=== PATIENT | male | born 1955 | race Native Hawaiian/Other Pacific Islander ===

== ENCOUNTER 2019-04-05 12:19 | Day surgery (SDC) | payer OTHER, SELFPAY ==
--- NOTE | 2019-04-05 | PATH_ITS ---
[facility] Accession Number: [id number] . 01 Material submitted: . body - POLYP AT 130 . 02 Diagnosis: Polyp at 130 cm: Benign submucosal lipoma (1.6 cm) of the colorectum. MRV 04/09/2019 1134 Local . 02 Electronically signed: . Angelica Woodward MD, Pathologist NPI- [id number] . 01 Gross description: . POLYP AT 130: Received in formalin is 1 fragment(s) of singh, soft tissue measuring 1.5 x 1.3 x 0.5 cm which is inked, serially sectioned and submitted entirely in 2 cassette(s) /QBJ 04/06/2019 0014 Local . 02 Pathologist provided ICD-10: K63.5 . 02 CPT . 963556 Performed at: 01 [facility] [address] [id number] MD Clayton Holbrook MD Phone: [phone] Performed at: 02 [facility] [address] [place], [place] [id number] MD Melodie Lopez MD Phone: [phone]
[2019-04-05 12:37] VITALS: BP 179/95; PULSE 92; RESP 15; TEMP 36.6; O2SAT 94; BMI 32.8
[2019-04-05] MEDS: SODIUM CHLORIDE 0.9% 1,000 ML 200 ML IV (12:50)
[2019-04-05] MEDS: fentaNYL 250 MCG/5 ML INJ IV (13:38)
[2019-04-05] MEDS: MIDAZOLAM 5 MG/5 ML VIAL IV (13:39)
--- NOTE | 2019-04-05 13:41 | PM.HP.1 ---
History of Present Illness History of Present Illness Date Patient Seen: 04/05/19 Time Patient Seen: 13:41 Chief complaint: [id number] SCREENING COLONOSCOPY Narrative: Patient presents for colorectal screening. He had previous colonoscopy 5 years ago that demonstrated adenomatous polyps which were resected.. No personal or family history of colon cancer. On further history denies any recent gastrointestinal symptoms. No nausea, vomiting, abdominal pain, loss of appetite, unexplained weight loss, change in bowel habits, diarrhea, constipation, melena, hematochezia, or bright red blood per rectum. Patient History Medical History Adenomatous polyps (Acute) Diabetes (Acute) Myocardial infarction (Acute) Family & Social History Social History: household members none Meds Home Medications and Allergies Home Medications Medication Instructions Recorded Confirmed Type aspirin [Aspir-81] 81 mg PO DAILY 04/05/19 04/05/19 History atorvastatin [Lipitor] 80 mg PO DAILY 04/05/19 04/05/19 History candesartan 4 mg PO DAILY 04/05/19 04/05/19 History carvedilol 6.25 mg PO BID 04/05/19 04/05/19 History dulaglutide [Trulicity] 1.5 mg SUBCUT QWEEK 04/05/19 04/05/19 History insulin glargine [Lantus U-100 25 unit SUBCUT BID 04/05/19 04/05/19 History Insulin] metformin 1,000 mg PO BID 04/05/19 04/05/19 History Allergies Allergy/AdvReac Type Severity Reaction Status Date / Time No Known Allergies Allergy Uncoded 04/05/19 12:29 Review of Systems Review of Systems Narrative: A 10 point review of systems is negative except as noted in the HPI Exam Vital Signs (past 8 hours): - 04/05/19 12:37 Temperature 97.8 F Pulse Rate 92 H Respiratory Rate 15 Blood Pressure 179/95 H Pulse Oximetry 94 Oxygen Delivery Method Room Air Narrative Exam Narrative: General-no acute distress, well nourished HEENT-moist mucous membranes, no scleral icterus Neck-supple, no lymphadenopathy Chest- non labored respirations, clear to auscultation bilaterally Cardiac-regular rate no peripheral edema Abdomen-soft, nontender, non distended Extremities-warm, well perfused Neurological-alert and oriented, no focal deficits Assessment & Plan Assessment and plan (1) Screening for colon cancer: Current visit: Yes Status: Acute Assessment & Plan narrative: The patient requires colorectal screening and colonoscopy is recommended. Technical details were discussed. Risks, benefits, alternatives explained. Risks including but not limited to myocardial infarction, aspiration, bleeding, pain, missed lesion, incomplete examination, need for further radiographic studies, colonic perforation, and need for major abdominal surgery were discussed. All questions were answered to their satisfaction, and they are in agreement with this plan.
--- NOTE | 2019-04-05 14:15 | PM.OP.ENDO ---
Operative Date/Time/Diagnoses Date of procedure: 04/05/19 Time of procedure: 14:15 Pre-op diagnosis: screening colonoscopy Post-op diagnosis: same Procedure & Clinicians Study performed: Colonoscopy Same procedure as scheduled: Yes Indications: 63-year-old male prior colonoscopy 5 years ago demonstrated an adenomatous polyp presents for routine screening. Surgeon: Klaus Pearson Procedure Notes SCOAP/Timeout: Performed Procedure in detail: Patient placed in left lateral decubitus position. Time out was performed. Procedural sedation was administered with Versed and Fentanyl. A rectal exam demonstrated no external hemorrhoids no internal masses. Colonoscopy scope was placed into the rectum and advanced through the colon to the cecum. The ileocecal valve was identified. The scope was then slowly withdrawn examining colon thoroughly in all directions. The colonoscopy was notable for the following 1. 2 cm adenomatous appearing polyp in the right colon resected with hot snare. Hemostatic 2. Sigmoid diverticulosis 3. Scope withdrawal time: 6 Sedation minutes: 30 Findings: diverticulosis Specimen(s): other (Polyp) Complications: none Impression: Polyp Post-procedure Recommendations: Colonscopy in 5 years Disposition: same day surgery
[2019-04-05 14:21] VITALS: BP 162/84; PULSE 77; RESP 14; TEMP 36.5; O2SAT 96
--- NOTE | 2019-04-05 14:23 | SUR.PHASEII ---
pt awake and alert. bowel sounds active. No distress noted. No complaints voice.
[2019-04-05 14:28] VITALS: BP 154/95; PULSE 86; RESP 16; O2SAT 96
[2019-04-05 14:35] VITALS: BP 153/87; PULSE 83; RESP 16; O2SAT 95
== END 2019-04-05 14:44 | disposition home or self-care (01) ==
PROVIDERS: PCP Internal Medicine; Visit Provider Surgery
PROC: 0DJD8ZZ Inspection of Lower Intestinal Tract, Via Natural or Artificial Opening Endoscopic (ICD-10-PCS; CPT 45378; principal; 2019-04-05 13:45)
DX: Z12.11 Encounter for screening for malignant neoplasm of colon (principal); Z86.010 Personal history of colon polyps; Z79.4 Long term (current) use of insulin; E11.9 Type 2 diabetes mellitus without complications; I25.2 Old myocardial infarction; K63.5 Polyp of colon; K57.30 Diverticulosis of large intestine without perforation or abscess without bleeding
CPT/HCPCS: 45385; 99152; 99153; J2250; J3010

== ENCOUNTER → 2022-08-27 09:05 | Outpatient (CLI) | payer MEDICARE, OTHER, SELFPAY ==
--- NOTE | 2022-08-27 | DI.NM.S_ITS ---
PROCEDURE: NM CARMEN PERF SPECT REST & STR Rest and exercise myocardial perfusion SPECT with gated imaging and ejection fraction RADIOPHARMACEUTICAL: 12.4 mCi Tc-99m sestamibi IV at rest and 25.5 mCi Tc-99m sestamibi IV at peak exercise. A [id number]-[id number] was performed. INDICATIONS: Atherosclerotic heart disease of [place] coronary TECHNIQUE: Radiopharmaceutical was injected at peak stress test, and also at rest. SPECT images were obtained. SPECT myocardial perfusion images were displayed in short axis, horizontal long axis, and vertical long axis views. Gated images were reviewed using Spyra software. COMPARISON: None. CARDIAC STRESS: A standard Philip treadmill exercise tolerance test was performed by the patient under the supervision of an attending staff. The patient exercised for 6 minutes and 22 seconds; 7.0 METS; functional aerobic impairment (LUIS) is +10%. Hemodynamic data: There is normal heart rate response to exercise stress. Patient achieved 94% of maximum predicted heart rate at peak exercise. Hypertensive response to exercise. Maximum blood pressure 230/102. Symptoms: Patient denied chest pain during exercise. EKG: No diagnostic EKG changes of ischemia; occasional PVCs with exercise. FINDINGS: Raw data: There is good myocardial labeling by radiotracer. No significant motion artifacts. Wguz-ra-nxbpe ratio is 0.38 (normal is less than 0.38 for sestamibi tracer, and less than 0.50 for thallium tracer). Left ventricle function: Gated images demonstrate normal left ventricle wall thickening. No segmental wall motion abnormality. No transient ischemic dilation; TID is 0.73 (normal less than 1.3). The left ventricle resting end-diastolic volume is 81 mL. Left ventricle stress ejection fraction is >75%; normal values are above 45%. Myocardial perfusion: There is normal distribution of activity in the left and right ventricular myocardium. No fixed or reversible perfusion defects. IMPRESSION: Low risk study. No evidence of exercise-induced ischemia on ECG or SPECT imaging. Normal LV size with hyperdynamic function. Hypertensive response to exercise. Slightly reduced exercise capacity. Dictated by: Cassie Lima D.O. on 08/30/2022 at 17:11 Approved by: Cassie Lima D.O. on 08/30/2022 at 17:20
--- NOTE | 2022-08-27 | DI.ECHO.S_ITS ---
[facility] +---------+ : : [address] : : : : [id number] : : : : Phone: [phone] Echocardiogram Report + + :Name: BRET TEMPLETON Study Date: 08/27/2022 Height: 68 in : :[facility] ReadingLocation: Weight: 220 lb : : Gender: Male BSA: 2.1 m2 : :: 1955 Age: 67 yrs BP: 150/80 mmHg: :Reason For Study: Atherosclerotic Heart Disease of [place] : :Coronary : :Ordering Physician: Cristino, : :[place] Performed By: Kesha Martel : :Referring: KINGA GREGG : + + Interpretation Summary 1) Mildly increased left ventricular thickness (concentric) with normal, size, normal wall motion, and normal systolic function (EF 60-65%). 2) Normal right ventricular size and function. 3) No significant valvular abnormalities. 4) No prior Echo available for comparison. Procedure: A two-dimensional transthoracic echocardiogram with color flow and Doppler was performed. The study quality was technically difficult. A contrast injection of Definity was performed to improve assessment of LV function. There is no prior echocardiogram noted for this patient. The patient was in normal sinus rhythm during the exam. Left Ventricle: The left ventricle is normal in size. Left ventricular wall thickness is mildly increased. The ejection fraction is estimated to be 60- 65%. Diastolic parameters suggest a relaxation abnormality of the left ventricle, consistent with probable normal filling pressures. Right Ventricle: The right ventricle is normal in size and function. Atria: The left atrial size is normal. Right atrial size is normal. There is no Doppler evidence for an interatrial shunt. Mitral Valve: The mitral valve is normal. There is no mitral valve stenosis. There is no mitral regurgitation noted. Aortic Valve: The aortic valve is trileaflet. The aortic valve opens well. There is no aortic valve stenosis. No aortic regurgitation is present. Tricuspid Valve: The tricuspid valve is normal. There is no tricuspid stenosis. There is trace tricuspid regurgitation. The right ventricular systolic pressure is estimated to be at least 15 mmHg based on an estimated right atrial pressure of 3 mm Hg. Pulmonic Valve: The pulmonic valve leaflets are thin and pliable; valve motion is normal. There is no pulmonic valvular stenosis. There is no pulmonic valvular regurgitation. Great Vessels: The aortic root is normal size. The ascending aorta is normal in size. The pulmonary artery is normal size. The IVC is of normal diameter and collapses greater than 50% with a sniff. This suggests a low right atrial pressure of 3 mm Hg. Pericardium/ Pleura There is no pericardial effusion. There is no pleural effusion. MMode/2D Measurements & Calculations LVIDd: 4.1 cm LVOT diam: 1.8 cm LVIDs: 2.3 cm Ao root diam: 2.9 cm FS: 43.9 % asc Aorta Diam: 2.8 cm IVSd: 1.1 cm LVPWd: 1.3 cm LV hall. diameter/BSA (cm/m^2): 1.9 LV sys. diameter/BSA (cm/m^2): 1.1 LA A2 area: 17.6 cm2 RA long axis: 4.7 cm LA A4 area: 13.8 cm2 RA area: 13.6 cm2 LA length (vol): 6.1 cm RA vol: 33.5 ml LA vol: 33.9 ml RA : 15.7 ml/m2 LA vol index: 15.9 ml/m2 RVD1 (basal): 4.0 cm LVLs ap4: 5.9 cm LVLd ap2: 6.4 cm TAPSE_phl: 1.9 cm LVLs ap2: 5.1 cm Doppler Measurements & Calculations Ao V2 max: 86.3 cm/sec LVOT Max Willy: 80.1 cm/sec Ao V2 mean: 65.3 cm/sec LV V1 max P.6 mmHg Ao max P.0 mmHg LV V1 VTI: 18.8 cm Ao mean P.0 mmHg SARMAD(I,D): 2.3 cm2 Ao V2 VTI: 20.5 cm SARMAD(V,D): 2.4 cm2 sev ratio: 0.92 SARMAD indexed to BSA (cm^2/m^2): 1.1 MV E max willy: 75.6 cm/sec TR max willy: 175.0 cm/sec MV A max willy: 76.0 cm/sec TR max P.3 mmHg MV E/A: 0.99 PA V2 max: 80.0 cm/sec Med Peak E' Willy: 5.5 cm/sec PA V2 mean: 54.1 cm/sec E/E' med: 13.7 PA mean P.0 mmHg Lat Peak E' Willy: 5.0 cm/sec PA pr(Accel): 25.4 mmHg E/E' lat: 15.0 E/e' average: 14.4 MV dec time: 0.18 sec SV(LVOT): 47.8 ml AV VR_phl: 0.93 SARMAD(VTI)/BSA_phl: 1.1 Reading Physician:02:59 PM
== END ==
PROVIDERS: PCP Family Medicine; Referring Provider Internal Medicine Cardiovascular Disease; Visit Provider Internal Medicine Cardiovascular Disease
DX: I25.10 Atherosclerotic heart disease of native coronary artery without angina pectoris (principal)
CPT/HCPCS: 78452; 93017; 93306; A9502; Q9957

== ENCOUNTER 2025-03-01 08:38 | Emergency (ER) | payer MEDICARE, OTHER, SELFPAY ==
[2025-03-01 08:38] VITALS: BP 160/78; PULSE 105; RESP 12; TEMP 36.6; O2SAT 99; BMI 34.2
--- NOTE | 2025-03-01 08:53 | DI.CT.S_ITS ---
PROCEDURE: CT HEAD/BRAIN WO CON INDICATIONS: hit head 10days ago, R hematoma, raccoon eyes, asymptomatic TECHNIQUE: Noncontrast 4.5 mm thick angled axial sections acquired from the foramen magnum to the vertex, with coronal and sagittal reformats. For radiation dose reduction, the following was used: automated exposure control, adjustment of mA and/or kV according to patient size. COMPARISON: , CT, CT FACIAL BONES WO CON, 03/01/2025, 8:54. FINDINGS: Image quality: Diagnostic. CSF spaces: Basal cisterns are patent. No extra-axial fluid collections. Ventricles are normal in size and shape. Brain: No midline shift. No intracranial mass effect or hemorrhage. Platt- white matter interface is normal. Skull and face: Large right periorbital/supraorbital hematoma. Calvarium and visualized facial bones are intact, without suspicious lesions. Sinuses: Visualized sinuses and mastoids are clear. IMPRESSION: No acute intracranial pathology. Large right periorbital/supraorbital hematoma. Dictated by: Chandra Gonzalez M.D. on 03/01/2025 at 9:13 Approved by: Chandra Gonzalez M.D. on 03/01/2025 at 9:15
--- NOTE | 2025-03-01 08:53 | DI.CT.S_ITS ---
PROCEDURE: CT FACIAL BONES WO CON INDICATIONS: hit head 10days ago, R hematoma, raccoon eyes, asymptomatic TECHNIQUE: Noncontrast 2.5 mm thick axial images acquired from the mandible through the frontal sinuses, with coronal and sagittal reformatting. For radiation dose reduction, the following was used: automated exposure control, adjustment of mA and/or kV according to patient size. COMPARISON: None. FINDINGS: Image quality: Excellent. Bones and teeth: Orbital meyer are intact. Sinus meyer show no fracture or deformity. Nasal bones and septum are intact. Visualized portions of the mandible demonstrate no fractures or subluxation. Zygomatic arches are intact. Pterygoid plates are intact. Visualized portions of the skull base and auditory canals are intact. Patient is edentulous. There are 2 screws present within the alveolar maxillary bone. Sinuses: No air-fluid levels. There is a tooth Felton present within the right maxillary sinus. There is lobulated mucosal thickening in the left and right maxillary sinuses. Mastoid air cells are aerated. Soft tissues: Sizable right periorbital/super orbital hematoma. Right globe and orbit intact. No enlarged lymph nodes. No soft tissue lacerations or debris. Vascular: Visualized vascular structures appear normal in the absence of contrast. Bony vascular foramina and canals are intact. IMPRESSION: 1. Sizable right periorbital and supraorbital hematoma. Right globe and orbit are intact. 2. No displaced facial bone fracture or mandibular fracture. 3. Patient is edentulous. 4. Incidental note is made of the presence of a tooth Felton within the right maxillary sinus. 5. Chronic sinus disease. Dictated by: Chandra Gonzalez M.D. on 03/01/2025 at 9:10 Approved by: Chandra Gonzalez M.D. on 03/01/2025 at 9:13
--- NOTE | 2025-03-01 08:53 | DI.CT.S_ITS ---
PROCEDURE: CT CERVICAL SPINE WO CON INDICATIONS: hit head 10days ago, R hematoma, raccoon eyes, asymptomatic TECHNIQUE: Noncontrast 3 mm thick sections acquired from the skull base to the T4 level. Sagittal and coronal reformats were then constructed. For radiation dose reduction, the following was used: automated exposure control, adjustment of mA and/or kV according to patient size. COMPARISON: None. FINDINGS: Image quality: Excellent. Bones: No fractures or dislocations. Cervical spondylosis. Calcification of the posterior longitudinal ligament posterior to C5 and C6 results in canal stenosis at these levels. There is multilevel bony foraminal narrowing secondary to uncovertebral joint hypertrophy. Visualized superior ribs are intact. Soft tissues: Prevertebral soft tissues are normal in thickness. No paravertebral hematomas. No apical pneumothoraces. IMPRESSION: No displaced fracture or traumatic subluxation. Cervical spondylosis with multilevel canal stenosis and multilevel foraminal stenosis. Dictated by: Chandra Gonzalez M.D. on 03/01/2025 at 9:15 Approved by: Chandra Gonzalez M.D. on 03/01/2025 at 9:18
--- NOTE | 2025-03-01 08:54 | ED.TRAUMA ---
HPI - Trauma General Chief Complaint: Trauma Stated Complaint: fell, Hit face swollen left eye, on blood thinners Time Seen by Provider: 03/01/25 08:47 Source: patient, RN notes reviewed and old records reviewed Mode of arrival: Ambulatory Limitations: no limitations History of Present Illness HPI narrative: 69-year-old male history of hypertension, diabetes on insulin, coronary artery disease with cardiac stent on aspirin daily presents with complaint of head injury 10 days prior. Patient states he was traveling in [place] was in the bathroom slipped and fell forward striking his head particularly in the right side. Developed what looks like a large hematoma over the right eye and developed bruising around both eyes. Patient states he traveled back the day before and then came to be evaluated today because of the hematoma and bruising. He has not seen while in [place]. Patient states no headaches, he has not had any neck or back pain, he denies any vision changes. No nausea or vomiting. No chest pain or shortness of breath. He has a little bit of wrist pain initially but that resolved on its own. Patient states no abdominal back or flank pain. Patient denies any urinary symptoms. No numbness tingling or weakness or difficulty with movement. Patient states he had prior cardiac stent in 2007. No other prior surgeries. No known drug allergies. No tobacco, alcohol or recreational drugs. Related Data Home Medications ?Medication ?Instructions ?Recorded ?Confirmed aspirin 81 mg tablet,delayed 81 mg PO DAILY 04/05/19 04/05/19 release (Aspir-) atorvastatin 80 mg tablet (Lipitor) 80 mg PO DAILY 04/05/19 04/05/19 candesartan 4 mg tablet 4 mg PO DAILY 04/05/19 04/05/19 carvedilol 6.25 mg tablet 6.25 mg PO BID 04/05/19 04/05/19 dulaglutide 1.5 mg/0.5 mL 1.5 mg SUBCUT QWEEK 04/05/19 04/05/19 subcutaneous pen injector (Trulicity) insulin glargine 100 unit/mL 25 unit SUBCUT BID 04/05/19 04/05/19 subcutaneous solution (Lantus U-100 Insulin) metformin 1,000 mg tablet 1,000 mg PO BID 04/05/19 04/05/19 Allergies Allergy/AdvReac Type Severity Reaction Status Date / Time No Known Allergies Allergy Uncoded 04/05/19 12:29 Review of Systems Review of Systems ROS Unobtainable: All systems reviewed & are unremarkable except as noted in HPI and below Patient History Medical History (Updated 03/01/25 @ 09:33 by Rosie Ovalles DO) Adenomatous polyps Myocardial infarction Diabetes Social History household members: none Smoking Status: Never smoker Exam Narrative Exam Narrative: GEN: Patient appears in mild distress. HEAD: Patient has hematoma over his right brow extends out by 2 cm about 3 cm in diameter, patient does have raccoon sign bilaterally, no grover sign. NECK: Nontender, painless range of motion, trachea midline Negative Nexus criteria, no midline line tenderness, distracting injury, altered mental status, neuro deficit, recent EtOH. EYES: PERRLA, EOMI ENT: See above, trachea is midline, TM's are normal no hemotypanum, Nares are clear, no septal hematoma, no dental or oral injury, airway is normal and with normal occlusion, No bony tenderness RESP: Chest is nontender and has symmetric movement, no ecchymosis, breath sounds are normal no crackles, wheezes or rales CVS: Heart sounds are normal, no murmur noted, No JVD. ABG/GI: Nontender, soft, normal bowel sounds, no distention, no organomegaly, pelvic rock is negative NEURO: Oriented AOx3, neuro is grossly intact, sensation and motor is normal all 4 extremities moving, cranial nerves II through XII are intact, GCS is 15 PSYCH: Normal mood and affect SKIN: Intact, warm and dry, no crepitus and without decubitus BACK: No CVA tenderness, no vertebral tenderness, no step-off's, no crepitus EXT: Atraumatic, normal range of motion of extremities with normal tendon exam, patient ambulates department without issue, normal gait. Initial Vital Signs Initial Vital Signs: Vital Signs Temperature 97.9 F 03/01/25 08:38 Pulse Rate 105 H 03/01/25 08:38 Respiratory Rate 12 03/01/25 08:38 Blood Pressure 160/78 H 03/01/25 08:38 Pulse Oximetry 99 03/01/25 08:38 Oxygen Delivery Method Room Air 03/01/25 08:38 Course Orders Ordered: ED Orders 03/01/25 08:53 CT cervical spine wo con Stat CT facial bones wo con Stat CT head/brain wo con Stat Vital Signs Vital signs: Vital Signs - 8 hr 03/01/25 08:38 03/01/25 09:56 Temperature 97.9 F Pulse Rate 105 H 80 Respiratory Rate 12 Blood Pressure 160/78 H 178/83 H Pulse Oximetry 99 97 Oxygen Delivery Method Room Air Room Air MDM - Trauma MDM Narrative Medical decision making narrative: 69-year-old male activated as modified trauma, had a fall 10 days ago on aspirin has large hematoma over his right brow as well as bilateral raccoon signs periorbital ecchymosis. He is currently otherwise asymptomatic has been traveling did not present anywhere for evaluation prior to today. Based on patient's exam head CT CT facial bones and CT cervical spine were obtained. Head CT, no acute intracranial pathology large right periorbital/supraorbital hematoma. CT facial bone, sizable right periorbital and supraorbital hematoma right globe or orbit are intact. No displaced facial bone fracture or mandibular fracture. Patient is edentulous. Incidental note of the presence of a tooth Felton present within the right maxillary sinus, chronic sinus disease. CT cervical spine, no displaced fracture or traumatic subluxation, cervical spondylosis with multilevel canal stenosis and multilevel foraminal stenosis. Reviewed findings with the patient he is 10 days out from his initial injury can use warm compresses to the hematoma as needed and time for resolution. All questions answered. Discharge Plan Departure Patient Disposition: Home Clinical Impression: Traumatic hematoma of face, Fall Instructions: DI for Hematoma (Bruise) Activity Restrictions/Additional Instructions: You have a hematoma under the skin over your right eyebrow but no changes of bleeding inside your brain, no facial bone fractures or cervical fractures. You can continue your home medications as prescribed. You can try warm compresses to the hematoma to help it breakdown over time. Please return if you develop severe headaches, new neck or back pain, any sudden vision changes, persistent vomiting, new difficulty with movement, new numbness tingling or weakness or other new or concerning changes. Prescriptions: No Action atorvastatin [Lipitor] 80 mg Tablet 80 mg PO DAILY carvedilol 6.25 mg Tablet 6.25 mg PO BID Lantus U-100 Insulin 100 unit/mL Solution 25 unit SUBCUT BID candesartan 4 mg Tablet 4 mg PO DAILY aspirin [Aspir-81] 81 mg Tablet,Delayed Release (Dr/Ec) 81 mg PO DAILY metformin 1,000 mg Tablet 1,000 mg PO BID Trulicity 1.5 mg/0.5 mL Pen Injector 1.5 mg SUBCUT QWEEK Referrals: Isela Rand MD [Primary Care Provider, Family Practice] Stand Alone Forms: Patient Portal/API
[2025-03-01 09:56] VITALS: BP 178/83; PULSE 80; O2SAT 97
== END 2025-03-01 10:00 | disposition home or self-care (01) ==
PROVIDERS: Emergency Provider Emergency Medicine; PCP Family Medicine
DX: S00.12XA Contusion of left eyelid and periocular area, initial encounter (principal); S00.11XA Contusion of right eyelid and periocular area, initial encounter; W01.198A Fall on same level from slipping, tripping and stumbling with subsequent striking against other object, initial encounter; M47.812 Spondylosis without myelopathy or radiculopathy, cervical region; M48.02 Spinal stenosis, cervical region; Z79.82 Long term (current) use of aspirin
CPT/HCPCS: 70450; 70486; 72125; 99284